=== PATIENT | female | born 1935 | race African-American/Black ===

== ENCOUNTER 2019-04-18 15:50 | Inpatient (IN) | payer MEDICARE, MEDICAID ==
[~2019-04-18] VITALS: Ht 154.9 cm; Wt 66.3 kg
[2019-04-18 16:09] LABS: GLUCOSE,POINT OF CARE 180 MG/DL (70-110)
[2019-04-18 18:20] LABS: BASOPHILS % (AUTO) 0.8 % (0.0-2.0); EOSINOPHILS % (AUTO) 1.5 % (1.0-6.0); HEMOGLOBIN 11.2 g/dL (12.0-16.0); LYMPHOCYTES # (AUTO) 2.6 K/uL (1.0-4.8); LYMPHOCYTES % (AUTO) 24.3 % (22.0-44.0); MEAN CORPUSCULAR HEMOGLOBIN 27.8 pg (26.0-34.0); MEAN CORPUSCULAR VOLUME 84 fL (80-100); MONOCYTES # (AUTO) 0.6 K/uL (0.1-1.0); MONOCYTES % (AUTO) 5.8 % (2.0-9.0); NEUTROPHILS # (AUTO) 7.3 K/uL (1.8-7.7); NEUTROPHILS % (AUTO) 67.6 % (40.0-70.0); PLATELET COUNT (AUTO) 257 K/uL (150-450); RED BLOOD CELL COUNT(AUTO) 4.04 MIL/uL (4.00-5.20); RED CELL DISTRIBUTION WIDTH 14.1 % (11.5-14.5)
[2019-04-18 18:39] LABS: CALCIUM, TOTAL 9.9 mg/dL (8.8-10.5); CREATININE 1.18 mg/dL (0.60-1.30); POTASSIUM 3.8 mmol/L (3.5-5.1)
[2019-04-18 18:46] LABS: ALBUMIN 4.3 g/dL (3.4-5.0); BILIRUBIN,TOTAL 0.4 mg/dL (0.1-1.0); TOTAL PROTEIN, SERUM 8.3 g/dL (6.4-8.2)
[2019-04-18 18:49] LABS: PROTHROMBIN TIME 10.3 SEC (9.4-11.6)
[2019-04-18] MEDS ORDERED: ACETAMINOPHEN 325 MG TABLET PO PRN (21:30)
[2019-04-18] MEDS ORDERED: 0.9% SODIUM CHLORIDE 10 ML SYRINGE IVP PRN (21:30)
[2019-04-18] MEDS ORDERED: ONDANSETRON HCL 4 MG/2 ML VIAL IVP PRN (21:30)
[2019-04-18 22:26] LABS: APPEARANCE,URINE CLOUDY (CLEAR); BILIRUBIN,URINE NEGATIVE (NEGATIVE); GLUCOSE, URINE (UA) NEGATIVE (NEGATIVE); KETONES,URINE NEGATIVE (NEGATIVE); LEUKOCYTE ESTERASE ,URINE LARGE (NEGATIVE); NITRATE,URINE NEGATIVE (NEGATIVE); OCCULT BLOOD,URINE MODERATE (NEGATIVE); PH,URINE 6.5 (5.0-8.0); PROTEIN,URINE TRACE (NEGATIVE); UROBILINOGEN,URINE 0.2 mg/dL (<=1.0)
[2019-04-18 22:44] LABS: BACTERIA,URINE Few /HPF (None Seen); SQUAMOUS EPITHELIAL CELL,UR Few /LPF (None Seen); WBC,URINE 51-100 /HPF (0-5)
[2019-04-19] VITALS (7 sets, daily range): BP systolic 108–140; BP diastolic 53–68
[2019-04-19] MEDS ORDERED: ALBUTEROL SULFATE 2.5 MG/0.5 ML NEB SOLUTION NEB PRN (01:00)
[2019-04-19] MEDS ORDERED: MAGNESIUM HYDROXIDE SUSPENSION 30 ML UDCUP PO PRN (01:00)
[2019-04-19] MEDS ORDERED: BISACODYL 10 MG RECTAL RECTAL SUPPOSITORY PR PRN (01:00)
[2019-04-19] MEDS ORDERED: ONDANSETRON HCL 4 MG/2 ML VIAL IVP PRN (01:00)
[2019-04-19] MEDS ORDERED: ACETAMINOPHEN 325 MG TABLET PO PRN (01:00)
[2019-04-19] MEDS ORDERED: ZOLPIDEM TARTRATE 5 MG TABLET PO PRN (01:00)
[2019-04-19] MEDS ORDERED: HYDROCODONE/ACETAMINOPHEN 5-325 MG TABLET PO PRN (01:00)
[2019-04-19] MEDS ORDERED: MORPHINE SULFATE 2 MG/ML SYRINGE IVP PRN (01:00)
[2019-04-19] MEDS ORDERED: IPRATROPIUM BROMIDE 0.5 MG/2.5 ML NEB SOLUTION NEB PRN (01:00)
[2019-04-19] MEDS: NITROGLYCERIN 2% (1 GM=INCH) PACKET TP SCH ×2 (06:07→12:00)
[2019-04-19] MEDS ORDERED: CARVEDILOL 3.125 MG TABLET PO SCH (09:00)
[2019-04-19] MEDS ORDERED: LOSARTAN POTASSIUM 25 MG TABLET PO SCH (09:00)
[2019-04-19] MEDS: DOCUSATE SODIUM 100 MG CAPSULE PO SCH ×2 (09:55→21:01)
[2019-04-19] MEDS: ASPIRIN 81 MG CHEWABLE TABLET PO SCH (09:55)
[2019-04-19] MEDS: HEPARIN SODIUM,PORCINE 5,000 UNITS/ML VIAL SQ SCH ×3 (09:55→23:41)
[2019-04-19 10:24] LABS: BASOPHILS % (AUTO) 1.1 % (0.0-2.0); EOSINOPHILS % (AUTO) 1.9 % (1.0-6.0); HEMATOCRIT 30.3 % (36-46); LYMPHOCYTES # (AUTO) 1.9 K/uL (1.0-4.8); LYMPHOCYTES % (AUTO) 23.5 % (22.0-44.0); MEAN CORPUSCULAR HEMOGLOBIN 28.1 pg (26.0-34.0); MEAN CORPUSCULAR VOLUME 85 fL (80-100); MONOCYTES # (AUTO) 0.6 K/uL (0.1-1.0); MONOCYTES % (AUTO) 6.9 % (2.0-9.0); NEUTROPHILS # (AUTO) 5.4 K/uL (1.8-7.7); NEUTROPHILS % (AUTO) 66.6 % (40.0-70.0); PLATELET COUNT (AUTO) 240 K/uL (150-450); RED BLOOD CELL COUNT(AUTO) 3.55 MIL/uL (4.00-5.20); RED CELL DISTRIBUTION WIDTH 14.2 % (11.5-14.5)
[2019-04-19 10:40] LABS: ALBUMIN 3.5 g/dL (3.4-5.0); BILIRUBIN,TOTAL 0.3 mg/dL (0.1-1.0); CHOL/HDL RATIO 3.6 (3.9-5.7); CREATININE 1.25 mg/dL (0.60-1.30); POTASSIUM 3.6 mmol/L (3.5-5.1); TOTAL PROTEIN, SERUM 7.1 g/dL (6.4-8.2)
[2019-04-19] MEDS ORDERED: CARVEDILOL 6.25 MG TABLET PO ONE (13:15)
[2019-04-19] MEDS ORDERED: GABAPENTIN 300 MG CAPSULE PO ONE (13:15)
[2019-04-19] MEDS ORDERED: ATOR20TA86 PO (13:43)
[2019-04-19] MEDS ORDERED: LINA5TAB PO (13:43)
[2019-04-19] MEDS ORDERED: DICL2100G TP (13:43)
[2019-04-19] MEDS ORDERED: LOSA-88 PO (13:43)
[2019-04-19] MEDS ORDERED: CARV6 PO (13:43)
[2019-04-19] MEDS ORDERED: ISOS30TA6 PO (13:43)
[2019-04-19] MEDS ORDERED: GABA-531 PO (13:43)
[2019-04-19] MEDS ORDERED: OMEP20 PO (13:43)
[2019-04-19] MEDS ORDERED: AMLO5TAB9 PO (13:43)
[2019-04-19] MEDS ORDERED: RANO500T3 PO (13:43)
[2019-04-19] MEDS: LinaGLIPtin 5 MG TABLET PO SCH (14:20)
[2019-04-19] MEDS: RANOLAZINE 500 MG ER TABLET PO SCH ×2 (14:21→21:01)
[2019-04-19] MEDS: OMEPRAZOLE 20 MG CAPSULE PO SCH (14:21)
[2019-04-19] MEDS: AmLODIPine BESYLATE 5 MG TABLET PO SCH ×2 (14:23→20:50)
[2019-04-19] MEDS ORDERED: ISOSORBIDE MONONITRATE 30 MG ER TABLET PO SCH (21:00)
[2019-04-19] MEDS ORDERED: ATORVASTATIN CALCIUM 20 MG TABLET PO SCH (21:00)
[2019-04-19] MEDS ORDERED: LOSARTAN POTASSIUM 50 MG TABLET PO SCH (21:00)
[2019-04-19] MEDS: CARVEDILOL 6.25 MG TABLET PO SCH (21:01)
[2019-04-19] MEDS: GABAPENTIN 300 MG CAPSULE PO SCH (21:01)
[2019-04-20 08:14] VITALS: BP 109/48
[2019-04-20] MEDS: LinaGLIPtin 5 MG TABLET PO SCH (08:16)
[2019-04-20] MEDS: HEPARIN SODIUM,PORCINE 5,000 UNITS/ML VIAL SQ SCH (08:17)
[2019-04-20] MEDS: GABAPENTIN 300 MG CAPSULE PO SCH (08:17)
[2019-04-20] MEDS: OMEPRAZOLE 20 MG CAPSULE PO SCH (08:17)
[2019-04-20] MEDS: AmLODIPine BESYLATE 5 MG TABLET PO SCH (08:18)
[2019-04-20] MEDS: CARVEDILOL 6.25 MG TABLET PO SCH (08:18)
[2019-04-20] MEDS: ASPIRIN 81 MG CHEWABLE TABLET PO SCH (08:18)
[2019-04-20] MEDS: DOCUSATE SODIUM 100 MG CAPSULE PO SCH (08:18)
[2019-04-20] MEDS: RANOLAZINE 500 MG ER TABLET PO SCH (08:19)
[2019-04-20 11:26] VITALS: BP 109/44
[2019-04-20] MEDS ORDERED: CefTRIAXone 1 GM/DEXTROSE 50 ML IV ONE (11:30)
[2019-04-20] MEDS ORDERED: SODIUM CHLORIDE 0.9% 100 ML ONE (12:56)
[2019-04-20] MEDS ORDERED: CEPH-582 PO (13:44)
== END 2019-04-20 15:57 | disposition home or self-care (01) | DRG 311 ==
LOC: EMS 15:54 → 5S 20:50
PROVIDERS: ADMIT Hospitalist; ATTEND Hospitalist
DX: I24.8 Other forms of acute ischemic heart disease (principal); N39.0 Urinary tract infection, site not specified; E78.5 Hyperlipidemia, unspecified; I25.10 Atherosclerotic heart disease of native coronary artery without angina pectoris; E11.51 Type 2 diabetes mellitus with diabetic peripheral angiopathy without gangrene; I11.0 Hypertensive heart disease with heart failure; I50.9 Heart failure, unspecified; Z88.0 Allergy status to penicillin; Z95.1 Presence of aortocoronary bypass graft; Z79.84 Long term (current) use of oral hypoglycemic drugs; Z86.711 Personal history of pulmonary embolism
CPT/HCPCS: 36245; 36569; 76937; 87086; 93005; 93306; G0378; J0696; J1644; J7050